=== PATIENT | female | born 1980 | race Caucasian/White ===

== ENCOUNTER → 2017-03-31 | Outpatient (CLI) | payer BC | LOC: EMI 03-23 10:00 | DX: G35 Multiple sclerosis (principal); R53.83 Other fatigue; I67.7 Cerebral arteritis, not elsewhere classified; R90.89 Other abnormal findings on diagnostic imaging of central nervous system | CPT/HCPCS: 70551 ==

== ENCOUNTER → 2021-12-24 | Outpatient (CLI) | payer BC | LOC: MRI 12-17 09:15 | DX: G35 Multiple sclerosis (principal) | CPT/HCPCS: 70551 ==